=== PATIENT | male | born 1955 | race Caucasian/White ===

== ENCOUNTER → 2017-10-01 | Outpatient (REF) | payer OTHER | LOC: M LAB REF 18:10 | DX: C44.612 Basal cell carcinoma of skin of right upper limb, including shoulder (principal); L85.8 Other specified epidermal thickening ==

== ENCOUNTER 2018-01-10 14:34 | Inpatient (IN) | payer OTHER ==
[2018-01-10] MEDS: MORPHINE 4 MG/ML 1ML VIAL/SYRINGE (J2270) IV ×2 (13:35→14:47)
[2018-01-10 14:06] LABS: BASO % 0.2 % (0.0-1.0); EOS % 0.3 % (0.0-3.0); HEMATOCRIT 40.6 % (42.0-52.0); HEMOGLOBIN 14.2 g/dl (13.5-17.5); LYMPH # 1.7 10^3/uL (1.5-4.5); LYMPH % 18.9 % (24.0-44.0); MEAN CORPUSCULAR HEMOGLOBIN 31.8 pg (27.0-33.0); MEAN CORPUSCULAR VOLUME 90.8 fl (80.0-96.0); MONO # 0.7 10^3/uL (0.0-0.8); MONO % 8.2 % (0.0-5.0); NEUTROPHILS # 6.2 10^3/uL (1.8-7.7); NEUTROPHILS % 71.4 % (36.0-66.0); PLATELET COUNT, AUTOMATED 230 10^3/uL (150-450); RED BLOOD COUNT 4.47 10^6/uL (4.30-6.10); RED CELL DISTRIBUTION WIDTH 12.7 % (11.5-14.5); WHITE BLOOD COUNT 8.7 10^3/uL (4.0-10.0)
[2018-01-10 14:07] LABS: ANION GAP 8 MEQ/L (8-16); BLOOD UREA NITROGEN 26 MG/DL (7-18); CALCIUM LEVEL 8.7 MG/DL (8.8-10.2); CARBON DIOXIDE LEVEL 24 MEQ/L (21-32); CHLORIDE LEVEL 107 MEQ/L (98-107); CREATININE FOR GFR 1.18 MG/DL (0.70-1.30); GLOMERULAR FILTRATION RATE > 60.0 (>49); GLUCOSE, FASTING 145 MG/DL (70-100); SODIUM LEVEL 139 MEQ/L (136-145)
[2018-01-10] MEDS: ADACEL/BOOSTRIX VACCINE (DIPHTH/PERTUSS/ACELL/TETANUS)0.5ML SYR (90715) IM (14:28)
[2018-01-10] MEDS: ONDANSETRON 4MG/2ML VIAL (J2405) IV ×2 (15:00→19:11)
[2018-01-10 15:04] LABS: BEDSIDE GLUCOSE 82 MG/DL (80-115)
[2018-01-10] MEDS ORDERED: fentaNYL 100 MCG/2 ML INJECTION (J3010) As Ordered ×4 (16:49→18:36)
[2018-01-10] MEDS ORDERED: MIDAZOLAM INJ 2 MG/2 ML VIAL (J2250) As Ordered (16:49)
[2018-01-10] MEDS: ceFAZolin 1GM INJ (J0690 PER 500MG) As Ordered (16:56)
[2018-01-10] MEDS ORDERED: KETAMINE HCL 200 MG/20 ML VIAL As Ordered (17:03)
[2018-01-10] MEDS: LIDOCAINE 1% MDV 20ML VIAL As Ordered (17:07)
[2018-01-10] MEDS ORDERED: PROPOFOL 200 MG/20 ML VIAL As Ordered ×3 (17:20→17:32)
[2018-01-10] MEDS: ceFAZolin 2 GM/D5W 50 ML IV BAG (J0690 PER 500MG) As Ordered (17:54)
[2018-01-10] MEDS: BACITRACIN OINT 30GM As Ordered (18:25)
[2018-01-10] MEDS: LR 1,000 ML IV ×2 (18:27→20:58)
[2018-01-10] MEDS: fentaNYL 100 MCG/2 ML INJECTION (J3010) IV ×4 (18:36→19:04)
[2018-01-10] MEDS: PERCOCET 5MG/325MG TAB PO ×2 (18:36→19:35)
[2018-01-10] MEDS ORDERED: PERCOCET 5MG/325MG TAB As Ordered ×2 (18:36→19:35)
[2018-01-10] MEDS: MEPERIDINE INJ 25 MG/ML VIAL (J2175) IV ×2 (18:40→18:50)
[2018-01-10] MEDS ORDERED: MEPERIDINE INJ 25 MG/ML VIAL (J2175) As Ordered (18:40)
[2018-01-10] MEDS ORDERED: HYDROmorphone HCL 1 MG/ML SYRINGE (J1170) IV (18:45)
[2018-01-10] MEDS ORDERED: NORCO, ANEXSIA 5/325MG TABLET (HYDROcodone/ACETAMINOPHEN) PO (19:00)
[2018-01-10] MEDS ORDERED: ONDANSETRON 4MG/2ML VIAL (J2405) As Ordered (19:11)
[2018-01-11] MEDS: NORCO, ANEXSIA 5/325MG TABLET (HYDROcodone/ACETAMINOPHEN) PO (05:05)
[2018-01-11] MEDS: ONDANSETRON 4MG/2ML VIAL (J2405) IV (07:52)
[2018-01-11] MEDS: LR 1,000 ML IV ×2 (07:53→21:08)
[2018-01-11] MEDS ORDERED: PERCOCET 5MG/325MG TAB PO (08:00)
[2018-01-11] MEDS: ASPIRIN 325 MG TAB PO ×2 (09:18→21:03)
[2018-01-11] MEDS: MORPHINE 4 MG/ML 1ML VIAL/SYRINGE (J2270) IV (09:18)
[2018-01-11] MEDS: PERCOCET 5MG/325MG TAB PO ×3 (12:25→21:04)
[2018-01-11] MEDS: ONDANSETRON 4 MG TAB (S0181) PO ×2 (16:59→21:06)
[2018-01-12] MEDS: LR 1,000 ML IV (07:55)
[2018-01-12] MEDS: ASPIRIN 325 MG TAB PO (08:22)
[2018-01-12] MEDS: PERCOCET 5MG/325MG TAB PO (09:18)
== END 2018-01-12 12:15 | disposition home or self-care (01) | DRG 482 ==
LOC: M ED 14:34 → M ED INP 15:11 → M MS5PR 20:15
PROC: 0QS60ZZ Reposition Right Upper Femur, Open Approach (ICD-10-PCS; principal; 2018-01-10 14:38)
DX: S72.001A Fracture of unspecified part of neck of right femur, initial encounter for closed fracture (principal); S40.011A Contusion of right shoulder, initial encounter; S60.511A Abrasion of right hand, initial encounter; S60.512A Abrasion of left hand, initial encounter; S50.311A Abrasion of right elbow, initial encounter; V18.0XXA Pedal cycle driver injured in noncollision transport accident in nontraffic accident, initial encounter; Y93.55 Activity, bike riding; Y92.488 Other paved roadways as the place of occurrence of the external cause; Y99.8 Other external cause status

== ENCOUNTER 2018-06-17 05:44 | Day surgery (SDC) | payer OTHER ==
[2018-06-17] MEDS ORDERED: LR 1,000 ML IV ×2 (07:00→10:30)
[2018-06-17] MEDS ORDERED: MIDAZOLAM INJ 2 MG/2 ML VIAL (J2250) As Ordered (07:16)
[2018-06-17] MEDS ORDERED: PROPOFOL 200 MG/20 ML VIAL As Ordered (07:16)
[2018-06-17] MEDS ORDERED: ROCURONIUM BROMIDE 50 MG/5 ML VIAL As Ordered ×2 (07:16→08:10)
[2018-06-17] MEDS ORDERED: fentaNYL 100 MCG/2 ML INJECTION (J3010) As Ordered ×3 (07:16→10:27)
[2018-06-17] MEDS ORDERED: LIDOCAINE 2% INJ 100 MG/5 ML SDV (FOR ANES.) As Ordered (07:16)
[2018-06-17] MEDS: ceFAZolin SOD 1 GM in D5W MINI-BAG PLUS 50 ML IV (07:50)
[2018-06-17] MEDS ORDERED: dexameTHASONE 4 MG/ML 1ML VIAL (J1100) As Ordered ×2 (07:58)
[2018-06-17] MEDS ORDERED: ePHEDrine SULFATE 25 MG/5 ML(5MG/ML) SYRINGE As Ordered (08:16)
[2018-06-17] MEDS: BUPIVACAINE/EPIN 0.25% 30 ML VIAL As Ordered (10:03)
[2018-06-17] MEDS: fentaNYL 100 MCG/2 ML INJECTION (J3010) IV ×4 (10:28→10:46)
[2018-06-17] MEDS ORDERED: HYDROMORPHONE HCL 0.5 MG/ 0.5 ML SYRINGE (J1170 PER 1) IV (10:30)
[2018-06-17] MEDS ORDERED: PERCOCET 5MG/325MG TAB PO (10:30)
[2018-06-17] MEDS ORDERED: NS 1,000 ML IV (10:30)
[2018-06-17] MEDS ORDERED: ONDANSETRON 4MG/2ML VIAL (J2405) IV (10:30)
[2018-06-17] MEDS ORDERED: MORPHINE 4 MG/ML 1ML VIAL/SYRINGE (J2270) IV (10:30)
[2018-06-17] MEDS ORDERED: KETOROLAC 30 MG/ML VIAL (J1885) IV (10:30)
[2018-06-17] MEDS: PERCOCET 5MG/325MG TAB PO ×2 (10:46→11:30)
== END 2018-06-17 13:47 | disposition home or self-care (01) ==
LOC: M SDC 05:44
DX: K40.20 Bilateral inguinal hernia, without obstruction or gangrene, not specified as recurrent (principal); Z87.891 Personal history of nicotine dependence
CPT/HCPCS: 49650

== ENCOUNTER → 2018-12-24 | Outpatient (REF) | payer OTHER ==
[~2018-12-24] MED LIST: ASPI-1 PO; PERC5TAB12 PO
== END ==
LOC: M LAB REF 15:46
PROVIDERS: ATTEND Surgery
DX: C44.622 Squamous cell carcinoma of skin of right upper limb, including shoulder (principal)

== ENCOUNTER 2019-04-15 09:52 | Emergency (ER) | payer MEDICARE, OTHER ==
[~2019-04-15] VITALS: Ht 177.8 cm; Wt 72.7 kg
[2019-04-15] MEDS: GASTROGRAFIN SOLUTION 30ML PO SCH ×2 (10:37→11:16)
[2019-04-15 10:42] LABS: BASO % 0.2 % (0.0-1.0); EOS % 0.2 % (0.0-3.0); HEMATOCRIT 45.8 % (42.0-52.0); HEMOGLOBIN 15.3 g/dl (13.5-17.5); LYMPH # 1.7 10^3/uL (1.5-4.5); LYMPH % 20.1 % (24.0-44.0); MEAN CORPUSCULAR HEMOGLOBIN 30.7 pg (27.0-33.0); MEAN CORPUSCULAR HGB CONC 33.4 g/dl (32.0-36.5); MEAN CORPUSCULAR VOLUME 91.8 fl (80.0-96.0); MONO # 0.6 10^3/uL (0.0-0.8); MONO % 7.6 % (0.0-5.0); NEUTROPHILS % 71.7 % (36.0-66.0); PLATELET COUNT, AUTOMATED 235 10^3/uL (150-450); RED BLOOD COUNT 4.99 10^6/uL (4.30-6.10); WHITE BLOOD COUNT 8.4 10^3/uL (4.0-10.0)
[2019-04-15 11:06] LABS: ALBUMIN 4.2 GM/DL (3.2-5.2); ALT/SGPT 30 U/L (12-78); BILIRUBIN,DIRECT 0.2 MG/DL (0.0-0.2); BILIRUBIN,TOTAL 1.1 MG/DL (0.2-1.0); BLOOD UREA NITROGEN 14 MG/DL (7-18); CALCIUM LEVEL 8.9 MG/DL (8.8-10.2); CARBON DIOXIDE LEVEL 28 MEQ/L (21-32); CHLORIDE LEVEL 107 MEQ/L (98-107); CREATININE FOR GFR 1.09 MG/DL (0.70-1.30); GLOMERULAR FILTRATION RATE > 60.0 (>49); GLUCOSE, FASTING 92 MG/DL (70-100); LIPASE 95 U/L (73-393); POTASSIUM SERUM 3.7 MEQ/L (3.5-5.1); SODIUM LEVEL 140 MEQ/L (136-145); TOTAL PROTEIN 8.3 GM/DL (6.4-8.2)
[2019-04-15] MEDS ORDERED: ISOVUE-370 76% 100ML VIAL (Q9967) As Ordered ONE (12:10)
--- NOTE | 2019-04-15 12:48 | REP ---
Clinical: Left lower quadrant pain. Technique: Axial contrast enhanced images from the lung bases to the pubic symphysis using oral (per protocol) and 100 ml Isovue 370 intravenous contrast material with coronal and sagittal re-formations. Findings: Mucosal thickening and pericolonic stranding involving the mid sigmoid colon is consistent with acute diverticulitis (images 96-106) no evidence for bowel obstruction or perforation. Normal terminal ileum and appendix identified in the right lower quadrant. No free air or drainable collection/abscess. Liver, spleen, pancreas, gallbladder, bilateral adrenal glands and kidneys are essentially normal. Incidental renal hypodensities most compatible with cysts measuring up to 1.6 cm in the right kidney. Pelvis demonstrates normal bladder and mildly enlarged prostate gland. Atherosclerotic changes to the aorta and vasculature noted without aneurysm. Skeletal structures demonstrate degenerative changes without focal osseous abnormality. Lung bases are clear. Impression: Acute sigmoid diverticulitis. No bowel obstruction, perforation, drainable collection or abscess noted. Electronically Signed by Gary Pope MD 04/15/2019 12:40 P
[2019-04-15] MEDS ORDERED: CIPR-249 PO (12:59)
[2019-04-15] MEDS ORDERED: FLAG500T PO (12:59)
[2019-04-15] MEDS ORDERED: PERC5TAB12 PO (12:59)
[2019-04-15] MEDS ORDERED: ONDA4TAB6 PO (12:59)
[2019-04-15 13:18] VITALS: BP 134/53
== END 2019-04-15 13:20 | disposition home or self-care (01) ==
LOC: M ED 09:52
DX: K57.32 Diverticulitis of large intestine without perforation or abscess without bleeding (principal); Z87.891 Personal history of nicotine dependence
CPT/HCPCS: 36415; 74177; 80048; 80076; 81001; 83690; 85025; 99284; Q9963; Q9967

== ENCOUNTER → 2019-06-03 | Outpatient (REF) ==
[~2019-06-03] MED LIST changes: +CIPR-249 PO; +FLAG500T PO; +ONDA4TAB6 PO
== END ==
LOC: M LAB LCGH 10:54
PROVIDERS: ATTEND Nurse Practitioner Family
DX: C44.310 Basal cell carcinoma of skin of unspecified parts of face (principal); C44.509 Unspecified malignant neoplasm of skin of other part of trunk

== ENCOUNTER → 2019-09-25 | Outpatient (REF) | payer MEDICARE, OTHER | LOC: M LAB REF 09:15 | PROVIDERS: ATTEND Dermatology | DX: C44.612 Basal cell carcinoma of skin of right upper limb, including shoulder (principal); L82.1 Other seborrheic keratosis | CPT/HCPCS: 11102; 11103; 17000; 88305; G0463 ==

== ENCOUNTER → 2019-10-14 | Outpatient (REF) | payer MEDICARE, OTHER | LOC: M LAB REF 09:40 | PROVIDERS: ATTEND Dermatology | DX: C44.612 Basal cell carcinoma of skin of right upper limb, including shoulder (principal) ==

== ENCOUNTER → 2020-02-23 | Outpatient (REF) | payer MEDICARE, OTHER | LOC: M LAB REF 17:48 | PROVIDERS: ATTEND Dermatology | DX: L57.0 Actinic keratosis (principal) | CPT/HCPCS: 11102; 88305; G0463 ==

== ENCOUNTER → 2020-09-01 | Outpatient (REF) | payer MEDICARE, OTHER | LOC: M LAB REF 17:15 | PROVIDERS: ATTEND Dermatology | DX: C44.519 Basal cell carcinoma of skin of other part of trunk (principal) | CPT/HCPCS: 11102; 88305; G0463 ==

== ENCOUNTER → 2020-10-11 | Outpatient (REF) | payer MEDICARE, OTHER | LOC: M LAB REF 18:23 | PROVIDERS: ATTEND Dermatology | DX: D23.5 Other benign neoplasm of skin of trunk (principal); L57.0 Actinic keratosis ==

== ENCOUNTER → 2021-10-13 | Outpatient (REF) | payer MEDICARE, OTHER | LOC: M LAB REF 14:28 | PROVIDERS: ATTEND Nurse Practitioner Family | DX: L57.0 Actinic keratosis (principal); L43.9 Lichen planus, unspecified | CPT/HCPCS: 11102; 88305; G0463 ==

== ENCOUNTER → 2022-07-15 | Outpatient (CLI) | payer MEDICARE, OTHER | LOC: M LABSMTC 11:03 | PROVIDERS: ATTEND Anesthesiology | DX: Z01.818 Encounter for other preprocedural examination (principal); Z11.52 Encounter for screening for COVID-19 ==

== ENCOUNTER 2022-07-19 09:36 | Day surgery (SDC) | payer MEDICARE, OTHER ==
[~2022-07-19] VITALS: Ht 179.1 cm; Wt 69.8 kg
[~2022-07-19 09:36] MED LIST changes: +NS 1,000 ML IV ONE
[2022-07-19] MEDS ORDERED: LIDOCAINE 2% 100MG/5ML SDV (FOR ANES.) As Ordered ONE (09:51)
[2022-07-19] MEDS ORDERED: propofoL 200 MG/20 ML VIAL As Ordered ONE (09:51)
[2022-07-19 11:33] VITALS: BP 115/63
== END 2022-07-19 11:59 | disposition home or self-care (01) ==
LOC: M OPP 09:36
PROVIDERS: ATTEND Surgery
DX: Z12.11 Encounter for screening for malignant neoplasm of colon (principal); D12.3 Benign neoplasm of transverse colon; K57.30 Diverticulosis of large intestine without perforation or abscess without bleeding; K44.9 Diaphragmatic hernia without obstruction or gangrene; K22.2 Esophageal obstruction; R14.0 Abdominal distension (gaseous); Z87.891 Personal history of nicotine dependence

== ENCOUNTER → 2022-08-16 | Outpatient (CLI) | payer MEDICARE, OTHER ==
[~2022-08-16] MED LIST changes: -NS 1,000 ML IV ONE
== END ==
LOC: M LABSMTC 10:20
PROVIDERS: ATTEND Anesthesiology
DX: Z01.818 Encounter for other preprocedural examination (principal); Z11.52 Encounter for screening for COVID-19

== ENCOUNTER 2022-08-21 07:14 | Day surgery (SDC) | payer MEDICARE, OTHER ==
[~2022-08-21] VITALS: Ht 177.8 cm; Wt 73.8 kg
[2022-08-21] MEDS: CYCLOPENTOLATE 1% OPHTH SOLN 2 ML BTL OS SCH (07:38)
[2022-08-21] MEDS: PROPARACAINE 0.5% OPHTH SOL 15ML OS ONE (07:38)
[2022-08-21] MEDS: TROPICAMIDE 1% OPHTH SOLN 15ML OS SCH (07:39)
[2022-08-21] MEDS: OFLOXACIN 0.3 % (OCUFLOX) OPTH SOL 5ML OS SCH (07:39)
[2022-08-21] MEDS: PHENYLEPHRINE 2.5% OPHTH SOL 2ML OS SCH (07:39)
[2022-08-21] MEDS: CEFUROXIME 1MG/0.1ML INTRACAMERAL INJ As Ordered ONE (08:14)
[2022-08-21] MEDS: LIDOCAINE 1% 1ML PF SYRINGE (OR EYE CASES) As Ordered ONE (08:14)
[2022-08-21] MEDS ORDERED: fentaNYL 100 MCG/2 ML INJECTION As Ordered ONE (08:34)
[2022-08-21] MEDS ORDERED: MIDAZOLAM INJ 2MG/2ML VIAL (J2250 PER 1MG) As Ordered ONE (08:34)
[2022-08-21 08:36] VITALS: BP 132/70
== END 2022-08-21 09:11 | disposition home or self-care (01) ==
LOC: M SDC 07:14
PROVIDERS: ATTEND Ophthalmology
DX: H25.12 Age-related nuclear cataract, left eye (principal); Z87.891 Personal history of nicotine dependence

== ENCOUNTER → 2022-11-22 | Outpatient (CLI) | payer MEDICARE, OTHER | LOC: M RAD 14:03 | PROVIDERS: ATTEND Orthopaedic Surgery | DX: T14.8XXA Other injury of unspecified body region, initial encounter (principal) ==

== ENCOUNTER → 2023-04-22 | Outpatient (REF) | payer MEDICARE, OTHER ==
[2023-04-22 12:59] LABS: APPEARANCE, URINE CLEAR (CLEAR); BACTERIA, URINE AUTO NEGATIVE (NEGATIVE); BILIRUBIN, URINE AUTO NEGATIVE (NEGATIVE); BLOOD, URINE BLOOD 2+ (NEGATIVE); COLOR, URINE YELLOW (YELLOW); GLUCOSE, URINE (UA) AUTO NEGATIVE (NEGATIVE); KETONE, URINE AUTO NEGATIVE (NEGATIVE); LEUKOCYTE ESTERASE, URINE AUTO NEGATIVE (NEGATIVE); MUCUS, URINE SMALL (NEGATIVE); NITRITE, URINE AUTO NEGATIVE (NEGATIVE); PROTEIN, URINE AUTO NEGATIVE (NEGATIVE); RBC, URINE AUTO 4 /HPF (0-3); SPECIFIC GRAVITY URINE AUTO 1.019 (1.002-1.035); SQUAMOUS EPITHELIAL CELL UR AU 0 /HPF (0-6); UROBILINOGEN, URINE AUTO 0.2 mg/dL (0.0-2.0); WBC, URINE AUTO 0 /HPF (0-3)
== END ==
LOC: M LAB REF 12:09
PROVIDERS: ATTEND Family Medicine
DX: R31.9 Hematuria, unspecified (principal)

== ENCOUNTER → 2023-10-23 | Outpatient (REF) | payer MEDICARE, OTHER ==
[2023-10-23 12:39] LABS: AMORPHOUS SEDIMENT LARGE (NEGATIVE); APPEARANCE, URINE TURBID (CLEAR); BACTERIA, URINE AUTO NEGATIVE (NEGATIVE); BILIRUBIN, URINE AUTO NEGATIVE (NEGATIVE); BLOOD, URINE BLOOD NEGATIVE (NEGATIVE); COLOR, URINE YELLOW (YELLOW); GLUCOSE, URINE (UA) AUTO NEGATIVE (NEGATIVE); KETONE, URINE AUTO NEGATIVE (NEGATIVE); LEUKOCYTE ESTERASE, URINE AUTO NEGATIVE (NEGATIVE); NITRITE, URINE AUTO NEGATIVE (NEGATIVE); PROTEIN, URINE AUTO NEGATIVE (NEGATIVE); RBC, URINE AUTO 0 /HPF (0-3); SPECIFIC GRAVITY URINE AUTO 1.029 (1.002-1.035); SQUAMOUS EPITHELIAL CELL UR AU 0 /HPF (0-6); UROBILINOGEN, URINE AUTO 0.2 mg/dL (0.0-2.0); WBC, URINE AUTO 0 /HPF (0-3)
== END ==
LOC: M LAB REF 11:44
PROVIDERS: ATTEND Family Medicine
DX: R31.9 Hematuria, unspecified (principal)

== ENCOUNTER → 2023-12-04 | Outpatient (REF) | payer MEDICARE, OTHER | LOC: M SFHCDERM 16:40 | PROVIDERS: ATTEND Physician Assistant | DX: C44.622 Squamous cell carcinoma of skin of right upper limb, including shoulder (principal); C44.41 Basal cell carcinoma of skin of scalp and neck ==

== ENCOUNTER → 2024-11-04 | Outpatient (REF) | payer MEDICARE, OTHER ==
[~2024-11-04] MED LIST changes: +ONDA-282 PO; -ONDA4TAB6 PO
== END ==
LOC: M SFHCDERM 17:45
PROVIDERS: ATTEND Physician Assistant
DX: C44.519 Basal cell carcinoma of skin of other part of trunk (principal)